=== PATIENT | female | born 1930 | race Hispanic/Latino ===

== ENCOUNTER 2019-09-12 08:36 | Day surgery (SDC) | payer MEDICARE ==
[~2019-09-12] VITALS: Ht 160 cm; Wt 52.2 kg
[~2019-09-12 08:36] MED LIST: ASCO10007 PO; BACL10TA PO; CALC-1106 PO; CHOL200012 PO; CLON0.1T PO; HYDR-2132 PO; LOPE2CAP14 PO; LOSA25TA41 PO; MELA1TAB8 PO; PROP60TA20 PO; SUMA25TA9 PO
[2019-09-12] MEDS ORDERED: SODIUM CHLORIDE 0.9% 1000ML 1,000 ML IV ONE (08:41)
[2019-09-12 09:33] VITALS: BP 119/86
[2019-09-12] MEDS ORDERED: METO100T14 PO (09:46)
[2019-09-12] MEDS ORDERED: LOSA50TA64 PO (09:46)
[2019-09-12] MEDS ORDERED: TRAZ-185 PO (09:46)
[2019-09-12 11:05] VITALS: BP 103/62
[2019-09-12 11:10] VITALS: BP 129/70
[2019-09-12 11:15] VITALS: BP 113/62
[2019-09-12 11:20] VITALS: BP 120/49
--- NOTE | 2019-09-12 11:30 | NUR ---
PT LEFT VIA WHEELCHAIR IN PVT CAR. PT STABLE NO COMPLICATIONS D/C INSTRUCTIONS GIVEN TO FAMILY MEMBER V/S STABLE.
== END 2019-09-12 11:30 | disposition home or self-care (01) ==
LOC: DAH 08:36 → ENDO 08:36
PROVIDERS: ATTEND Internal Medicine Gastroenterology
DX: R14.0 Abdominal distension (gaseous) (principal); K29.70 Gastritis, unspecified, without bleeding; B96.81 Helicobacter pylori [H. pylori] as the cause of diseases classified elsewhere; K21.9 Gastro-esophageal reflux disease without esophagitis; R63.4 Abnormal weight loss; I10 Essential (primary) hypertension; F32.9 Major depressive disorder, single episode, unspecified; M06.9 Rheumatoid arthritis, unspecified; G43.909 Migraine, unspecified, not intractable, without status migrainosus; Z88.5 Allergy status to narcotic agent; Z85.038 Personal history of other malignant neoplasm of large intestine; Z90.710 Acquired absence of both cervix and uterus; Z98.890 Other specified postprocedural states; Z90.49 Acquired absence of other specified parts of digestive tract; Z79.899 Other long term (current) drug therapy; Z87.891 Personal history of nicotine dependence; Z82.49 Family history of ischemic heart disease and other diseases of the circulatory system; Z83.3 Family history of diabetes mellitus
CPT/HCPCS: 43239; 88305; A4215; A4221; A4222; A4223; A4606; A4620; A4663; J7030

== ENCOUNTER → 2019-10-05 | Outpatient (CLI) | payer MEDICARE ==
[~2019-10-05] MED LIST changes: -ASCO10007 PO; -BACL10TA PO; -CALC-1106 PO; -CHOL200012 PO; -CLON0.1T PO; -HYDR-2132 PO; +IOHEXOL 350 MG/ML 100ML INFUS..BTL IV ONE; -LOPE2CAP14 PO; -LOSA25TA41 PO; +LOSA50TA64 PO; -MELA1TAB8 PO; +METO100T14 PO; -PROP60TA20 PO; -SUMA25TA9 PO; +TRAZ-185 PO
== END | disposition home or self-care (01) ==
LOC: RAH 07:46
PROVIDERS: ATTEND Internal Medicine Gastroenterology
DX: I70.0 Atherosclerosis of aorta (principal); R63.4 Abnormal weight loss; R19.7 Diarrhea, unspecified; J98.11 Atelectasis; K57.30 Diverticulosis of large intestine without perforation or abscess without bleeding; I71.9 Aortic aneurysm of unspecified site, without rupture
CPT/HCPCS: 74178; Q9967